=== PATIENT | male | born 1980 | race American Indian/Alaskan Native ===

== ENCOUNTER 2016-10-05 18:47 | Emergency (ER) | payer SELFPAY ==
[~2016-10-05] VITALS: Ht 167.6 cm; Wt 76.9 kg
[2016-10-05 19:43] VITALS: Ht 167.6 cm; Wt 76.9 kg
[2016-10-05] MEDS ORDERED: TETRACAINE 0.5% 4 ML OPH LEFT EYE ONE (22:00)
[2016-10-05] MEDS ORDERED: VIGA LEFT EYE (22:36)
[2016-10-05] MEDS ORDERED: KETO5DRO21 LEFT EYE (22:36)
[2016-10-05 22:48] VITALS: BP 131/86; PULSE 77; RESP 16
--- NOTE | 2016-10-05 23:20 | ERD ---
ER Documentation Chief Complaint Date/Time DATE: 10/05/16 TIME: 23:15 Chief Complaint left eye pain w/ redness today HPI 28-year-old male with no significant past medical history presents the ED complaining of left eye pain with redness that started earlier today. States that he was using a weed ilene and accidentally hit a rock into his left eye. States that ever since this happened it feels like a burning sensation Feels like he got punched in the left eye and feels a pressure sensation. States that he took Tylenol without relief of his pain. States he has blurred vision to left eye. States that he has slight photophobia. Denies any headache, weakness, numbness or tingling, bleeding, rhinorrhea, sore throat. Denies any photophobia. ROS All systems reviewed and are negative except as per history of present illness. Medications Home Meds Active Scripts Moxifloxacin Hcl* (Vigamox*) 0.5% - 3 Ml Opht, 1 DROP LEFT EYE TID, #1 EA Prov:SAVITA MARTIN PA-C 10/05/16 Ketorolac Tromethamine Oph (Ketorolac Tromethamine Oph) 0.5%-5 Ml Opht Drops, 1 DROP LEFT EYE QID, #1 EA Prov:SAVITA MARTIN PA-C 10/05/16 Allergies Allergies: Coded Allergies: No Known Allergy (Unverified , 10/05/16) PMhx/Soc History of Surgery: No Anesthesia Reaction: No Hx Neurological Disorder: No Hx Respiratory Disorders: No Hx Cardiac Disorders: No Hx Psychiatric Problems: No Hx Miscellaneous Medical Probl: Yes (DIET CONTROLLED CHOLESTEROL.) Hx Alcohol Use: Yes (OCC) Hx Substance Use: No Hx Tobacco Use: Yes (ON AND OFF) Smoking Status: Current some day smoker Physical Exam Vitals Vital Signs Date Time Temp Pulse Resp B/P Pulse Ox O2 Delivery O2 Flow Rate FiO2 10/05/16 22:48 77 16 131/86 99 Room Air 10/05/16 19:43 97.6 83 20 140/66 100 Physical Exam Const: [id number], well-nourished. In no acute distress. Head: Atraumatic, normocephalic Eyes: Red reflex appreciated. Normal Conjunctiva without injection. No purulent discharge. PERRLA. EOMI ENT: Normal external ear. Ear canal without erythema. Tympanic membrane pearly ackerman without effusion or bulging. Nasal canal clear with normal turbinates. Moist oropharynx without tonsillar exudates. Non-erythematous pharynx. Uvula midline. No drooling. No trismus. Neck: No cervical midline tenderness. Full range of motion. No meningismus. No cervical lymphadenopathy. No JVD. Resp: Clear to auscultation bilaterally. No wheezing, rhonchi, rales, or crackles. No accessory muscle use. No retractions. Cardio: Regular rate and rhythm. No murmurs, rubs or gallops. Abd: Soft, non tender, non distended. Normal bowel sounds. No palpable masses. No rebound tenderness. No guarding. Negative McBurney's Point. Negative Huitron's Sign. Skin: Normal skin turgor. No petechiae or rashes Back: No midline tenderness. No CVA tenderness. Ext: No cyanosis, or edema. Distal pulses intact bilaterally. Neur: Awake and alert. Normal gait. Normal coordination. Cranial Nerves II- VII intact. Normal finger to nose. Muscle strength 5/5. Sensation intact. Psych: Normal Mood and Affect Results 24 hrs Current Medications Medications (Trade) Dose Ordered Sig/Edgar Route PRN Reason Start Time Stop Time Status Last Admin Dose Admin Tetracaine HCl (Tetracaine 0.5% Steri-Unit Denia) 1 drop ONCE ONCE LEFT EYE 10/05/16 22:00 10/05/16 22:01 DC Procedures/MDM 36-year-old male with no significant past medical history presents the ED complaining of left eye pain after a rock hit his left eye from a weed ilene. Patient is afebrile and nontoxic-appearing. Patient has normal vital signs. This case was discussed with my supervising physician, Dr. Hays who also evaluated patient at this time and performed a Branham lamp and eye exam. Eye Exam w/ Wood's lamp: Visual Acuity: L 20/100 R 20/20 Bilateral 20/15 Visual Riojas: Intact in all four quadrants bilaterally Lac ducts/glands: No swelling Lids w/ evertion: Normal, no foreign body Conj/Simpson: Clear, negative Shannon's. Positive 2 mm oval fluorescein stain noted in the mid cornea above the left pupil. Anterior Chamber: Clear Patient likely sustained a corneal abrasion. Low suspicion for ruptured globe, retinal detachment, retroorbital hemorrhage, periorbital cellulitis, acute angle closure glaucoma, periorbital fracture, deep space infection, iritis, traumatic hyphema, conjunctivitis, subconjunctival hemorrhage, corneal ulcer, pterygium, hypopyon, blepharitis, hordeolum, chalazion, or other emergent conditions. Plan for 24 hour ophthalmologic follow up. Discharge medications: Ketorolac Ophthalmic, Vigamox Follow up with primary care physician in 1-2 days. Instructed patient to return to the ED sooner for any worsening symptoms. Patient's questions were answered. Patient understood and agreed with discharge plan. Patient discharged stable. Departure Diagnosis: Primary Impression: Corneal abrasion Encounter type: initial encounter Laterality: left Qualified Code: S05.02XA - Corneal abrasion, left, initial encounter Condition: Stable Patient Instructions: Corneal Abrasion Referrals: [facility] YOU HAVE RECEIVED A MEDICAL SCREENING EXAM AND THE RESULTS INDICATE THAT YOU DO NOT HAVE A CONDITION THAT REQUIRES URGENT TREATMENT IN THE EMERGENCY DEPARTMENT. FURTHER EVALUATION AND TREATMENT OF YOUR CONDITION CAN WAIT UNTIL YOU ARE SEEN IN YOUR DOCTORS OFFICE WITHIN THE NEXT 1-2 DAYS. IT IS YOUR RESPONSIBILITY TO MAKE AN APPOINTMENT FOR [facility] CARE. IF YOU HAVE A PRIMARY DOCTOR --you should call your primary doctor and schedule an appointment IF YOU DO NOT HAVE A PRIMARY DOCTOR YOU CAN CALL OUR PHYSICIAN REFERRAL HOTLINE AT IF YOU CAN NOT AFFORD TO SEE A PHYSICIAN YOU CAN CHOSE FROM THE FOLLOWING [facility] [address] [facility]. [facility] [address] [facility] [address] [facility] [address] [facility]. [facility] [address] [facility]. [facility]. [address] [facility] YOU HAVE RECEIVED A MEDICAL SCREENING EXAM AND THE RESULTS INDICATE THAT YOU DO NOT HAVE A CONDITION THAT REQUIRES URGENT TREATMENT IN THE EMERGENCY DEPARTMENT. FURTHER EVALUATION AND TREATMENT OF YOUR CONDITION CAN WAIT UNTIL YOU ARE SEEN IN YOUR DOCTORS OFFICE WITHIN THE NEXT 1-2 DAYS. IT IS YOUR RESPONSIBILITY TO MAKE AN APPOINTMENT FOR FOLOW-UP CARE. IF YOU HAVE A PRIMARY DOCTOR --you should call your primary doctor and schedule and appointment IF YOU DO NOT HAVE A PRIMARY DOCTOR YOU CAN CALL OUR PHYSICIAN REFERRAL HOTLINE AT . IF YOU CAN NOT AFFORD TO SEE A PHYSICIAN YOU CAN CHOSE FROM THE FOLLOWING [facility] INSTITUTIONS: [facility] [address] [place] [address] [facility] [address] [place] [address] [facility] [address] [place] [address] [facility] Hours: Mon - Fri 9:00 AM - 5:00 PM Additional Instructions: It is important for you to follow up with the opthalomologist within 24 hours. Return to this facility if you are not improving as expected. SAVITA MARTIN PA-C Oct 05, 2016 23:20
== END 2016-10-05 22:49 | disposition home or self-care (01) ==
LOC: E/R 18:47 → FTE 22:49
DX: S05.02XA Injury of conjunctiva and corneal abrasion without foreign body, left eye, initial encounter (principal); F17.210 Nicotine dependence, cigarettes, uncomplicated; W22.8XXA Striking against or struck by other objects, initial encounter; Y92.9 Unspecified place or not applicable
CPT/HCPCS: 99284